=== PATIENT | male | born 1960 | race African-American/Black ===

== ENCOUNTER 2019-11-07 19:13 | Emergency (ER) | payer MEDICAID, SELFPAY ==
[2019-11-07 19:14] VITALS: BP 108/67; PULSE 99; RESP 15; TEMP 37; O2SAT 100; BMI 34.2
--- NOTE | 2019-11-07 19:15 | ED.RN ---
NO OLD EKGS IN MUSE
[2019-11-07 19:23] VITALS: BP 117/79; PULSE 93; RESP 14; O2SAT 97
--- NOTE | 2019-11-07 19:28 | CT_ITS ---
STUDY: CT BRAIN WITHOUT CONTRAST REASON FOR EXAM: Male, 58 years old. Dizziness weakness RADIATION DOSAGE (If Supplied By Facility): CTDIvol = ( 44.99 ) mGy, DLP = ( 779.24 ) mGycm TECHNIQUE: Transaxial CT imaging of the brain was performed without administration of intravenous contrast material. Individualized dose optimization techniques were used for this CT. COMPARISON: No relevant priors. FINDINGS: Brain parenchyma is without focal lesions, mass effect, acute intracranial hemorrhage, extra parenchymal fluid collections, hydrocephalus or herniation. The skull is intact. CT/Brain/Head without Contrast IMPRESSION: 1. Normal CT brain. Electronically Signed: Sapphire Calabrese, at 20:12 EST Tel , Service support ,
--- NOTE | 2019-11-07 19:28 | RAD_ITS ---
STUDY: X-RAY CHEST REASON FOR EXAM: Male, 58 years old. Shortness of breath dizziness TECHNIQUE: Frontal view of the chest was performed COMPARISON: None. FINDINGS: Lungs are clear. There is no pneumothorax, pulmonary edema, pleural effusions or cardiomegaly. Osseous structures are intact. There is no gas under the diaphragms. [ ] RAD/Chest 1 View (Portable) IMPRESSION: 1. No acute cardiorespiratory disease. [ ] Electronically Signed: Sapphire Calabrese, at 20:26 EST Tel , Service support ,
--- NOTE | 2019-11-07 19:29 | EKG12_ITS ---
Test Reason : CP Blood Pressure : / mmHG Vent. Rate : 089 BPM Atrial Rate : 089 BPM P-R Int : 152 ms QRS Dur : 076 ms QT Int : 364 ms P-R-T Axes : 049 058 045 degrees QTc Int : 442 ms Normal sinus rhythm Nonspecific T wave abnormality Abnormal ECG Confirmed by RUBEN MCGILL, BERNA ([id number]), supervising editor trailer COLBY UGARTE ([id number]) on 11/08/2019 11:26:37 AM Referred By: ANA/RENATA Confirmed By:BERNA MIRANDA MD
--- NOTE | 2019-11-07 19:31 | ED.VIS.GEN ---
History of Present Illness Chief Complaint: Chest Pain Detail of Chief Complaint: Lightheaded and dizzy, chest pain with deep breath, short of breath Informant: Patient Onset: Days Context: Gradual Onset Timing: Waxes and wanes Current Severity: Mild Maximum Severity: Moderate Narrative: Patient presents secondary to 2-day history of ringing in his ears that he describes as crickets as well as feeling lightheaded and dizzy. He states he does feel like the room is spinning somewhat. Symptoms are worsened when he is standing and better when sitting at rest. He states his been moving very slowly so he does not fall. Today he reports chest pain with deep breath and feeling somewhat short of breath. - Past Medical History (1) Hypertension Status: Chronic (2) Diverticulitis Status: Resolved Past Medical History - Allergies and Home Meds Allergies/Adverse Reactions: Allergies Penicillins Allergy (Verified 11/07/19 19:17) Swelling Primary Care Physician: Dalila Farfan DO [NON-STAFF] - As Needed Surgical History: - - Partial colectomy Lives: Spouse/ Significant Other Smoking Status: Current every day smoker Review of Systems General: Denies: Chills, Fever Eyes: Denies: Visual changes - bilaterally ENT: Reports: - - Ringing in ears. Denies: Bilateral ear pain Cardiovascular: Reports: Chest pain Respiratory: Reports: Dyspnea. Denies: Cough, Sputum Gastrointestinal: Denies: Abdominal pain, Nausea, Vomiting, Diarrhea Musculoskeletal: Denies: Neck pain, Back pain, Extremity Pain Skin: Denies: Rash Neurological: Denies: Headache Hematologic: Denies: Easy bruising Allergy: Denies: Uticaria Physical Exam Vital Signs/Narrative: Vital Signs Temp Pulse Resp BP Pulse Ox 11/07/19 19:23 93 14 117/79 97 11/07/19 19:14 98.6 F 99 15 108/67 100 Inital Vital Signs reviewed: Yes General: Well nourished, Well developed Head: Normocephalic ENT: Moist mucous membranes Neck: Supple Cardiovascular: Regular rate, Regular rhythm Respiratory: No distress, CTA bilaterally Abdomen: Soft, Nontender, Hypoactive bowel sounds Extremities: Nontender Skin: Normal color, No rash Neurological: Alert, Oriented x3, Normal Strength, Normal Sensation, - - NIH equals 0 Psychological: Normal affect Diagnostic/Tx/Re-eval Impressions Brain CT 11/07/19 19:28 IMPRESSION: 1. Normal CT brain. Electronically Signed: Sapphire Calabrese, at 20:12 EST Tel , Service support , Chest X-Ray 11/07/19 19:28 IMPRESSION: 1. No acute cardiorespiratory disease. [ ] Electronically Signed: Sapphire Calabrese, at 20:26 EST Tel , Service support , 11/07/19 19:28 Brain/Head without Contrast [CT] Stat Chest 1 View (Portable) [RAD] Stat Laboratory Results 11/07/19 11/07/19 11/07/19 19:27 19:27 19:27 WBC 6.6 RBC 5.65 Hgb 16.7 H Hct 49.3 MCV 87.3 MCH 29.6 MCHC 33.9 RDW Std Deviation 41.5 RDW Coeff of Rocael 13.1 Plt Count 238 MPV 9.3 Immature Gran % (Auto) 0.300 Neut % (Auto) 45.1 L Lymph % (Auto) 41.5 H [place] % (Auto) 9.3 Eos % (Auto) 3.2 Baso % (Auto) 0.6 Absolute Neuts (auto) 3.0 Absolute Lymphs (auto) 2.72 Nucleated RBC % 0 D-Dimer Quant (PE/DVT) 0.28 Sodium 142 Potassium 3.7 Chloride 108 H Carbon Dioxide 29.0 Anion Gap 5 BUN 22 H Creatinine 1.45 H Estim Creat Clear Calc 58.42 Est GFR (MDRD) Af Amer 64 Est GFR (MDRD) Non-Af 53 L BUN/Creatinine Ratio 15.2 Glucose 66 L Calcium 9.0 Troponin I < 0.015 - EKG Initial EKG Interpretation: Sinus Rhythm - Sinus at 89 with T wave flattening. No prior study available for comparison. - Medical Decision Making Patient was given 0.5 mg of Ativan along with IV fluids. On repeat evaluation he reports feeling much improved. He is able to ambulate up and down the halls without dizziness. I did advise patient that his symptoms are consistent with vertigo but may have been worsened with his mild dehydration. He will increase fluids. We discussed the possibility of M?ni?re's disease as he does have the ringing in his ears along with vertigo. He is encouraged to follow-up with his primary care physician for further evaluation. ED Disposition - Plan for ED Patient: Disposition: Home or Assisted Living Diagnosis: Vertigo, Atypical chest pain Instructions: CHEST PAIN, NonCardiac, VERTIGO, Unspecified Referrals: Fast,Dalila, DO [NON-STAFF] - As Needed
[2019-11-07] MEDS: 0.9% Normal Saline 1,000 ML 1000 ML IV (19:37)
[2019-11-07] MEDS: LORazepam 2 MG/ML Syringe 0.5 MG IV (19:37)
[2019-11-07 19:49] LABS: Absolute Lymphocyte Count 2.72 X10^3/uL (0.83-4.51); Basophil# 0.04 X10^3/uL; Basophil% 0.6 % (0-1); Eosinophil# 0.21 X10^3/uL; Eosinophils% 3.2 % (0-5); Hematocrit 49.3 % (40-54); Hemoglobin 16.7 g/dL (13.0-16.5); Lymphocyte # 2.72 X10^3/ul (4.0); Lymphocyte % 41.5 % (19-41); Mean Corp Hgb Conc 33.9 g/dL (32-36); Mean Corpuscular Hgb 29.6 pg (27.0-32.0); Mean Corpuscular Volume 87.3 fL (80-94); Mean Platelet Vol. 9.3 fl (6.2-12.0); Monocyte# 0.61 X10^3/uL; Monocyte% 9.3 % (0-10); NRBC Flagged by Analyzer 0 % (0-5); Neutrophil # 2.96 X10^3/uL (2.7-7.7); Neutrophil % 45.1 % (47-70); Platelet Count 238 K/mm3 (150-450); RBC Distribution Width CV 13.1 % (11.6-14.6); RBC Distribution Width SD 41.5 fl (35.1-43.9); Red Blood Count 5.65 M/mm3 (4.6-6.2); White Blood Count 6.6 K/mm3 (4.4-11.0)
[2019-11-07 19:55] LABS: D-Dimer Quantitative (DVT/PE) 0.28 FEU/ug/m (0.27-0.49)
[2019-11-07 20:06] LABS: Anion Gap 5 (5-15); BUN 22 mg/dL (7-18); BUN/Creat Ratio 15.2 RATIO (10-20); Chloride 108 mmol/L (98-107); Creatinine, Serum 1.45 mg/dL (0.70-1.30); EST Glomerular Filtration Rate 53 mL/min (>60); Est Glom Filt Rate - Afr Amer 64 mL/min (>60); Estimated Creatinine Clearance 58.42 ml/min; Glucose 66 mg/dL (74-106); Potassium 3.7 mmol/L (3.5-5.1); Sodium Level 142 mmol/L (136-145)
[2019-11-07 20:32] VITALS: BP 129/74; PULSE 85; RESP 16; O2SAT 97
[2019-11-07] MEDS: 0.9% Normal Saline 1,000 ML 150 ML IV (20:57)
[2019-11-07 21:00] VITALS: BP 118/86; PULSE 82; RESP 17; O2SAT 98
[2019-11-07 22:13] VITALS: BP 133/78; PULSE 80; RESP 16; O2SAT 100
== END 2019-11-07 22:15 | disposition home or self-care (01) ==
PROVIDERS: Emergency Provider Emergency Medicine
DX: R07.89 Other chest pain (principal); R07.1 Chest pain on breathing; R42 Dizziness and giddiness; R06.02 Shortness of breath; I10 Essential (primary) hypertension; F17.200 Nicotine dependence, unspecified, uncomplicated; Z79.899 Other long term (current) drug therapy; Z88.0 Allergy status to penicillin; Z90.49 Acquired absence of other specified parts of digestive tract
CPT/HCPCS: 70450; 71045; 80048; 84484; 85025; 85379; 93005; 96361; 96374; 99284; J7030; A4216

== ENCOUNTER 2020-02-29 20:18 | Emergency (ER) | payer MEDICAID, SELFPAY ==
[2020-02-29 20:19] VITALS: BP 146/71; PULSE 90; RESP 20; TEMP 36.9; O2SAT 100; BMI 33.5
--- NOTE | 2020-02-29 20:35 | ED.VIS.GEN ---
History of Present Illness Chief Complaint: Back Informant: Patient Onset: Days Context: Gradual Onset Timing: Waxes and wanes Current Severity: Moderate Maximum Severity: Severe Narrative: Patient presents with left lower back pain for the past 3 days. He states after getting out of the shower he had leaned over to clip his toenails. When he stood back up he developed pain in the left lower back near the SI joint area. Patient denies any direct trauma to his back. Pain does not radiate down his leg. He has had difficulty finding comfortable positions to sit in. When asked what medication he was taking for pain he told me Aleve and ibuprofen. I did see that the patient had been at [facility] yesterday and was given prescriptions for Percocet and Flexeril. When asked when patient had taken the last dose of this he states at 1:00 this afternoon. - Past Medical History (1) Hypertension Status: Chronic (2) Diverticulitis Status: Resolved Past Medical History - Allergies and Home Meds Allergies/Adverse Reactions: Allergies Penicillins Allergy (Verified 02/29/20 20:20) Angioedema Primary Care Physician: Shereen Jacob MD [Primary Care Provider] - Prior records reviewed: Yes Surgical History: - - Partial colectomy Smoking Status: Current every day smoker Review of Systems General: Reports: Chills Eyes: Reports: Visual changes - bilaterally ENT: Reports: Bilateral ear pain Cardiovascular: Reports: Chest pain Respiratory: Reports: Dyspnea, Cough Gastrointestinal: Reports: Abdominal pain, Nausea, Vomiting, Diarrhea Musculoskeletal: Reports: Back pain. Denies: Extremity Pain Skin: Denies: Rash Neurological: Denies: Headache Hematologic: Denies: Easy bruising Allergy: Denies: Uticaria Physical Exam Vital Signs/Narrative: Vital Signs Temp Pulse Resp BP Pulse Ox 02/29/20 20:19 98.4 F 90 20 H 146/71 H 100 Inital Vital Signs reviewed: Yes General: Well nourished, Well developed Head: Normocephalic ENT: Moist mucous membranes Neck: Supple Cardiovascular: Regular rate, Regular rhythm Respiratory: No distress, CTA bilaterally Abdomen: Soft, Nontender Back: - - Reproducible pain the left low lumbar paraspinal muscles and over the sciatic notch. Extremities: Nontender Skin: Normal color, No rash Neurological: Alert, Oriented x3, - - And at bedside. He is able to raise up on tiptoes and heels without difficulty. He is strong distal pulses. Normal sensation. Diagnostic/Tx/Re-eval - Medical Decision Making We will add steroids to the patient's current pain medications. He will be given first dose here and prescription will be sent to the pharmacy for him. Because he was already prescribed Flexeril and Percocet he would not be given additional pain medication or muscle relaxers. ED Disposition - Plan for ED Patient: Disposition: Home or Assisted Living Diagnosis: Sciatica Instructions: ED LUMBAR RADICULOPATHY Prescriptions: Prednisone [Deltasone] 60 mg PO DAILY #15 tab Transmission Status: Pending to [facility] #30 Referrals: Shereen Jacob MD [Primary Care Provider] - 1 Week
[2020-02-29] MEDS: cycloBENZAPRine HCl 10 MG Tablet PO (20:47)
[2020-02-29] MEDS: oxyCODONE 5 MG Tablet PO (20:47)
[2020-02-29] MEDS: predniSONE 20 MG Tablet 60 MG PO (20:47)
[2020-02-29 20:49] VITALS: BP 152/69; PULSE 82; RESP 16; O2SAT 99
== END 2020-02-29 20:49 | disposition home or self-care (01) ==
PROVIDERS: Emergency Provider Emergency Medicine; PCP Internal Medicine
DX: M54.40 Lumbago with sciatica, unspecified side (principal); I10 Essential (primary) hypertension; H92.03 Otalgia, bilateral; R07.9 Chest pain, unspecified; R06.00 Dyspnea, unspecified; R05 Cough; R11.2 Nausea with vomiting, unspecified; R10.9 Unspecified abdominal pain; R19.7 Diarrhea, unspecified; Z79.899 Other long term (current) drug therapy; Z88.0 Allergy status to penicillin; F17.200 Nicotine dependence, unspecified, uncomplicated; Z87.19 Personal history of other diseases of the digestive system; Z90.49 Acquired absence of other specified parts of digestive tract
CPT/HCPCS: 99283

== ENCOUNTER 2021-01-14 18:57 | Emergency (ER) | payer MEDICAID, SELFPAY ==
[2021-01-14 18:59] VITALS: BP 131/75; PULSE 79; RESP 20; TEMP 36.5; O2SAT 100; BMI 36.2
--- NOTE | 2021-01-14 19:17 | EKG12_ITS ---
Test Reason : CHEST PRESSURE Blood Pressure : / mmHG Vent. Rate : 062 BPM Atrial Rate : 062 BPM P-R Int : 164 ms QRS Dur : 084 ms QT Int : 408 ms P-R-T Axes : 058 032 058 degrees QTc Int : 414 ms Sinus rhythm with occasional Premature ventricular complexes Otherwise normal ECG Confirmed by RUBEN MCGILL, BERNA ([id number]), film editor supervisor BRY CLARKE ([id number]) on 01/16/2021 11:37:55 AM Referred By: DAPHNE Confirmed By:BERNA MIRANDA MD
--- NOTE | 2021-01-14 19:23 | ED.DCSUM_ITS ---
History of Present Illness Chief Complaint: Abd Pain Informant: Patient, Significant Other Onset: Days - Onset of epigastric pain 4 days ago Context: Sudden Onset Timing: Continuous Quality: Pain?burning Location: Epigastrium Current Severity: Mild Maximum Severity: Moderate Worsened by: Eating Relieved by: Nothing Associated Symptoms: Nausea and vomiting with vasovagal response prior to arrival Narrative: Patient is a pleasant 60-year-old male with history of hypertension who presents with epigastric burning sensation for the past 4 days. The pain is worse with eating. He denies intolerance to greasy or fried foods. There is no family history of cholelithiasis or cholecystitis. He has taken [id number] preps with no relief. He states he was constipated and took something. He has had results. He denies fever, chills night sweats. Denies headache, visual, ocular auditory symptoms. He denies rhinorrhea, congestion or postnasal drainage. Denies sore throat. He denies discomfort in his chest. He denies exertional discomfort or positional discomfort. He denies cough, shortness of breath or dyspnea on exertion. He denies orthopnea or PND. He denies black or maroon-colored stool. He denies urologic symptoms. He denies rash. Denies myalgias or arthralgias. He has had no ill contacts. He denies history of GERD, hiatal hernia, gastritis or peptic ulcer disease. Prior similar symptoms: No Recent Illness/Hospitalization: No - Past Medical History (1) Hypertension Status: Chronic (2) Diverticulitis Status: Resolved Past Medical History - Allergies and Home Meds Allergies/Adverse Reactions: Allergies Penicillins Allergy (Verified 02/29/20 20:20) Angioedema Primary Care Physician: Shereen Jacob MD [Primary Care Provider] - Prior records reviewed: Yes Surgical History: noncontributory, - - Partial colectomy Lives: Spouse/ Significant Other Smoking Status: Current every day smoker Alcohol: None Drugs: None Review of Systems General: Denies: Chills, Fever, Subjective, Sweats Eyes: Denies: Visual changes - bilaterally, Blurred Vision - bilaterally ENT: Denies: Bilateral ear pain, Rhinorrhea, Sore throat Cardiovascular: Denies: Chest pain, Palpitations Respiratory: Denies: Dyspnea, Cough, Sputum, Dyspnea on exertion, Orthopnea, Paroxysmal nocturnal dyspnea, -, - Gastrointestinal: Reports: Abdominal pain, Nausea, Vomiting. Denies: Diarrhea, Constipation, Melena, Hematochezia Genitourinary: Denies: Dysuria, Hematuria, Frequency Musculoskeletal: Denies: Myalgias, Arthralgias, Neck pain, Back pain, Swelling, Extremity Pain, -, - Skin: Denies: Rash, Wounds Neurological: Denies: Headache, Weakness, Numbness Endocrine: Denies: Polyuria, Polydipsia Hematologic: Denies: Easy bruising, Easy bleeding Physical Exam Vital Signs/Narrative: Vital Signs Temp Pulse Resp BP Pulse Ox 01/14/21 18:59 97.7 F L 79 20 H 131/75 H 100 Inital Vital Signs reviewed: Yes General: Well nourished, Well developed, No Acute Distress Head: Normocephalic, Atraumatic Eyes: Perrl, EOMI ENT: Moist mucous membranes, No rhinorrhea Neck: Supple, Nontender Cardiovascular: Regular rate, Regular rhythm, No murmurs Respiratory: No distress, CTA bilaterally, Chest nontender Abdomen: Soft, Nondistended, Normal bowel sounds, Tender - Tenderness in the epigastrium.. Negative for: Mendez's sign Back: Nontender, Normal Inspection. Negative for: CVA tenderness Extremities: Nontender, No edema Skin: Normal color, No rash Neurological: Alert, Oriented x3, Cranial nerves II-XII grossly intact, Normal Strength, Normal Sensation Psychological: Normal affect, Normal Mood Diagnostic/Tx/Re-eval Impressions Abdomen Ultrasound 01/14/21 21:04 IMPRESSION: Contracted gallbladder. Gallbladder wall is slightly thickened likely due to this contraction rather than inflammation. at 2300 Reported and signed by: Russell Garcia MD Electronically Signed: Russell Garcia MD at 22:59 EST Tel , Service support , 01/14/21 21:04 Abdomen Limited [US] Stat Laboratory Results 01/14/21 19:40 Sodium 139 Potassium 3.6 Chloride 104 Carbon Dioxide 30.0 Anion Gap 5 BUN 17 Creatinine 1.28 Estim Creat Clear Calc 64.55 Est GFR (MDRD) Af Amer 73 Est GFR (MDRD) Non-Af 61 BUN/Creatinine Ratio 13.3 Glucose 94 Calcium 8.5 Total Bilirubin 0.40 AST 45 H ALT 71 H Alkaline Phosphatase 71 Troponin I < 0.015 Total Protein 7.4 Albumin 3.6 Globulin 3.8 Albumin/Globulin Ratio 0.9 Lipase 487 H CBC and differential unremarkable. Patient reports relief of his epigastric pain with GI cocktail. Will discharge with prescription for omeprazole. He has been instructed follow-up with his physician regarding the elevated transaminases and lipase. - EKG Initial EKG Interpretation: Sinus Rhythm - Sinus rhythm with a ventricular rate of 62. There is a premature ventricular beat noted. NM interval 74 ms. QRS duration 84 ms. QT duration 408 ms. [place] is normal. Other than the premature ventricular beat the EKG is normal. - Medical Decision Making Differential diagnosis includes esophagitis, GERD, gastritis, peptic ulcer disease. Because he is 60 years of age with history hypertension EKG and troponin was obtained and that this is atypical presentation for cardiac ischemia. CMP was obtained to assess liver enzymes and lipase to rule out biliary disease. GI cocktail was ordered. ED Disposition - Plan for ED Patient: Disposition: Home or Assisted Living Diagnosis: Acute epigastric pain, Elevated liver transaminase level Instructions: ED GERD (Adult) Prescriptions: Omeprazole 40 mg PO DAILY #30 capsule.dr Transmission Status: Pending to [facility] #30 Referrals: Shereen Jacob MD [Primary Care Provider] - 3-5 Days Additional Instructions: 1. Your liver enzymes are elevated. The cause of this is unknown. You should call your doctor's office in the morning to be seen later this week. You were prescribed medication for the pain in your upper abdomen. The medication was sent to your preferred pharmacy/pharmacy of choice
[2021-01-14] MEDS: Mag Hydrox/Al Hydrox/Simeth 30 ML UDC PO (19:33)
[2021-01-14 20:08] LABS: ALB/GLOB Ratio 0.9 RATIO (0.9-2.4); AST(SGOT) 45 U/L (15-37); Alanine Aminotransfer ALT/SGPT 71 U/L (16-61); Albumin, Serum 3.6 g/dL (3.2-5.0); Alkaline Phosphatase 71 U/L (45-117); Anion Gap 5 (5-15); BUN 17 mg/dL (7-18); BUN/Creat Ratio 13.3 RATIO (10-20); Calcium,Total 8.5 mg/dL (8.5-10.1); Chloride 104 mmol/L (98-107); Creatinine, Serum 1.28 mg/dL (0.70-1.30); EST Glomerular Filtration Rate 61 mL/min (>60); Est Glom Filt Rate - Afr Amer 73 mL/min (>60); Estimated Creatinine Clearance 64.55 ml/min; Globulin 3.8 g/dL (2.2-4.2); Glucose 94 mg/dL (74-106); Lipase 487 U/L (73-393); Potassium 3.6 mmol/L (3.5-5.1); Protein, Total 7.4 g/dL (6.4-8.2); Sodium Level 139 mmol/L (136-145)
[2021-01-14 21:00] VITALS: BP 115/75; PULSE 59; RESP 12; O2SAT 99
--- NOTE | 2021-01-14 21:04 | US_ITS ---
HISTORY: EPIGASTRIC PAIN X 4 DAYS TECHNIQUE: Beatty scale and color doppler imaging was performed of the pancreas, liver, and gallbladder. COMPARISON: None FINDINGS: # of images incl. paperwork: 72 The liver is fattily infiltrated. The gallbladder is contracted No gallstones, or biliary dilatation. Gallbladder wall measures 4 mm. Common bile duct measures 2 mm. No tenderness upon insonation the gallbladder. Visualized pancreas is normal in appearance. Right kidney is normal in size and appearance. Visualized abdominal aorta has normal caliber. IVC is patent. Hepatopedal flow is present within the central portal vein. US/Abdomen Limited IMPRESSION: Contracted gallbladder. Gallbladder wall is slightly thickened likely due to this contraction rather than inflammation. at 2300 Reported and signed by: Russell Garcia MD Electronically Signed: Russell Garcia MD at 22:59 EST Tel , Service support ,
[2021-01-14 23:46] LABS: Absolute Lymphocyte Count 2.26 X10^3/uL (0.83-4.51); Absolute Neutrophil Count 2.6 X10^3/uL (2.0-7.7); Basophil# 0.04 X10^3/uL; Basophil% 0.7 % (0-1); Eosinophil# 0.29 X10^3/uL; Hematocrit 47.1 % (40-54); Lymphocyte # 2.26 X10^3/ul (4.0); Lymphocyte % 39.3 % (19-41); Mean Corp Hgb Conc 31.8 g/dL (32-36); Mean Corpuscular Hgb 28.6 pg (27.0-32.0); Mean Corpuscular Volume 89.9 fL (80-94); Mean Platelet Vol. 9.5 fl (6.2-12.0); Monocyte# 0.46 X10^3/uL; NRBC Flagged by Analyzer 0 % (0-5); Neutrophil # 2.64 X10^3/uL (2.7-7.7); Platelet Count 195 K/mm3 (150-450); RBC Distribution Width CV 12.8 % (11.6-14.6); RBC Distribution Width SD 42.5 fl (35.1-43.9); Red Blood Count 5.24 M/mm3 (4.6-6.2); White Blood Count 5.8 K/mm3 (4.4-11.0)
[2021-01-14 23:57] VITALS: BP 112/92; PULSE 78; RESP 18; O2SAT 100; O2SAT 98
== END 2021-01-15 00:14 | disposition home or self-care (01) ==
PROVIDERS: Emergency Provider Emergency Medicine; PCP Internal Medicine
DX: R10.13 Epigastric pain (principal); R74.02 Elevation of levels of lactic acid dehydrogenase [LDH]; R11.2 Nausea with vomiting, unspecified; I49.3 Ventricular premature depolarization; I10 Essential (primary) hypertension; F17.200 Nicotine dependence, unspecified, uncomplicated; Z79.899 Other long term (current) drug therapy
CPT/HCPCS: 76705; 80053; 83690; 84484; 85025; 93005; 99285

== ENCOUNTER 2022-03-24 15:49 | Emergency (ER) | payer MEDICAID, SELFPAY ==
[2022-03-24 15:50] VITALS: BP 140/79; PULSE 95; RESP 17; TEMP 37.4; O2SAT 92; BMI 39.8
--- NOTE | 2022-03-24 16:38 | EDS_ITS ---
HPI History of Present Illness Chief Complaint: Cellulitis Detail of Chief Complaint: Finger Informant: patient Onset/Context/Timing Onset: Days Context: Gradual Onset Timing: Continuous Current Severity: Mild Maximum Severity: Mild Narrative Narrative: 61-year-old male history of hypertension. States he reached under his car seat yesterday and something punctured his right long finger on the palmar aspect at the PIP. It is now red and swollen has been the last couple days. Denies any other trauma. He is right-hand dominant. He is not diabetic. Prior similar symptoms: No Recent Illness/Hospitalization: No PFSH PFSH Home Medications hydrochlorothiazide 25 mg PO DAILY 11/07/19 [History Last Taken Unknown] lisinopril 10 mg PO DAILY 11/07/19 [History Last Taken Unknown] omeprazole 40 mg PO DAILY #30 capsule. 01/14/21 [Rx Last Taken Unknown] Allergy/AdvReac Type Severity Reaction Status Date / Time Penicillins Allergy Angioedema Verified 03/24/22 15:49 Social History Smoking Status: Current every day smoker tobacco type: cigarettes ROS ROS ED ROS Narrative Right long finger red and swollen. Review of Systems ROS Unobtainable: Denies due to encephalopathy or due to endotracheal tube Constitutional Constitutional ED: Denies chills or fever(s) Eyes Eyes: Denies blurry vision, change in vision or diplopia ENT ENT ED: Denies ear pain Cardiovascular Cardiovascular: Denies chest pain Respiratory/Chest Respiratory/Chest: Denies cough or dyspnea Gastrointestinal Gastrointestinal: Denies abdominal pain, diarrhea, nausea or vomiting Genitourinary Genitourinary ED: Denies dysuria or hematuria Musculoskeletal Musculoskeletal: Denies arthralgias or myalgias Integumentary Denies abscess or rash Neurologic Neurologic: Denies headache(s) Psychiatric Psychiatric: Denies depression Endocrine Endocrinology: Denies polyuria Allergic/Immunologic Allergic/Immunologic ED: Denies urticaria EXAM Physical Exam Narrative Exam Narrative: 59-year-old male no acute distress vital signs stable afebrile. HEENT exam unremarkable. Lungs are clear. Heart regular rate and rhythm. Right long finger and palmar aspect of the DIP there is a pustule. Finger is red and swollen. He has decreased flexion due to swelling. No flexor tenosynovitis at this time. He has 180 degrees of extension. Normal touch sensation. Normal cap refill. The palm is uninvolved there is no pagetic streaking in his forearm and no axillary lymphadenopathy. It is obviously infected the long finger. Const Vital Signs: 03/24/22 15:50 Temperature 99.3 F H Temperature Source Temporal Pulse Rate 95 Respiratory Rate 17 Blood Pressure 140/79 H Blood Pressure Mean 99 Pulse Ox 92 Oxygen Delivery Method Room Air Positive well nourished, well developed and obese; Negative for cachectic, contractures or unkempt General Appearance ED: well developed and NAD; Negative for unkempt, cachectic, contractures, cyanotic, diaphoretic or pallor Nutritional Appearance: obese; Negative for cachectic HEENT Reports moist mucous membranes Negative for trauma or tenderness Eyes PERRL and EOMs intact bilaterally Neck no lymphadenopathy, supple and no JVD General: Negative for tenderness Chest Wall inspection of chest normal and palpation of chest normal Resp normal respiratory effort and clear to auscultation bilaterally Effort and Inspection: Negative for pain with movement Auscultation: Negative for rales, rhonchi or wheezes Cardio regular rate, regular rhythm, S1 normal heart sound, S2 normal heart sound and no murmurs GI normal to inspection, nondistended, normoactive bowel sounds, non-tender, non- distended and no masses Inspection: Negative for abdominal distention Auscultation: normoactive bowel sounds Palpation: soft; Negative for tender, guarding or rebound tenderness present Back/Spine no CVA tenderness Extremity Negative for normal to inspection Extremity Narrative: Right long finger is red, tender, swollen with decreased flexion due to swelling. There is an abscess at the DIP skin crease on the palmar aspect. General Extremety ED: Yes edema and tenderness General Extremity: edema Neuro oriented x3 Sensorium / Orientation: alert Motor Exam: strength 5/5 throughout Psych mental status grossly normal Appearance: Negative for unkempt Mood & Affect: Negative for depressed or tearful Skin No no rashes or lesions noted and No no wounds Skin Narrative: Right long finger puncture wound at the DIP with redness and abscess. General Skin Exam: Negative for jaundice or pallor MDM MDM MDM Narrative Medical decision making narrative: Patient has an infected right long finger after a puncture wound. There appears to be an abscess that will need to be drained. Also an x-ray to be obtained to rule out a foreign body and he will be started on Keflex. First dose given in ER. Procedure: I&D of a right right long finger abscess. Any other symptoms locally anesthetized with let. I made a small incision about half to 1 cm. Expressed about 1 to 2 cc of pus. Patient tolerated procedure well. There are no Knievel signs. No signs of tenosynovitis at this time. He was instructed on wound care. He will be discharged with prescription of Keflex to be given while here. Radiography Diagnostic Testing: Clinical Impression(s) from Imaging Studies Finger X-Ray 03/24/22 16:47 IMPRESSION: Negative x-rays of the visualized right fingers. Electronically Signed: Keven Robins MD at 17:21 EDT , Right long finger x-ray 2 views interpreted by myself shows soft tissue swelling. No foreign body. Also read by the radiologist and agrees. Procedures Other Procedures Procedure(s): Incision and drainage of right long finger subcu abscess. Local anesthetized with let. Made a small incision approximately 1 cm was able to drain about about 1 to 2 cc of pus. Patient tolerated well. Discharge Plan Triage Chief Complaint: Cellulitis ED Provider: Amish Loja Dx/Rx/DC Orders Prescriptions: No Action lisinopril 10 MG tablet 10 mg PO DAILY RF: 0 hydrochlorothiazide 12.5 MG capsule 25 mg PO DAILY RF: 0 omeprazole 40 MG capsule,delayed release(DR/EC) 40 mg PO DAILY Qty: 30 RF: 0 Primary Care Provider: Shereen Jacob
[2022-03-24] MEDS: Cephalexin 250 MG Capsule 500 MG PO (16:42)
--- NOTE | 2022-03-24 16:47 | RAD_ITS ---
EXAM: XR RIGHT FINGERS, 2 OR MORE VIEWS CLINICAL INDICATION: right long swelling TECHNIQUE: Frontal, lateral and oblique views of the fingers of the right hand. This report was created using [employer] report generation technology. COMPARISON: None. FINDINGS: BONES/JOINTS: Unremarkable. No acute fracture. No subluxation. Normal alignment. Preservation of the joint space. No sclerotic or destructive changes observed. SOFT TISSUES: Unremarkable. No soft tissue swelling or gas. No radiopaque foreign body. RAD/Finger(s) Min 2 Views IMPRESSION: Negative x-rays of the visualized right fingers. Electronically Signed: Keven Robins MD at 17:21 EDT ,
[2022-03-24] MEDS: Lidocaine/Epi/Tetracaine 50 ML 1 APPLIC TOPICAL (16:56)
== END 2022-03-24 17:57 | disposition home or self-care (01) ==
PROVIDERS: Emergency Provider Emergency Medicine; PCP Internal Medicine; Visit Provider Emergency Medicine
DX: L02.413 Cutaneous abscess of right upper limb (principal); S61.234A Puncture wound without foreign body of right ring finger without damage to nail, initial encounter; I10 Essential (primary) hypertension; F17.210 Nicotine dependence, cigarettes, uncomplicated; W26.8XXA Contact with other sharp object(s), not elsewhere classified, initial encounter; Z79.899 Other long term (current) drug therapy; E66.9 Obesity, unspecified; Z68.39 Body mass index [BMI] 39.0-39.9, adult
CPT/HCPCS: 10060; 73140; 99283

== ENCOUNTER → 2024-02-17 | Outpatient (CLI) | payer MEDICAID, SELFPAY ==
--- NOTE | 2024-02-17 08:14 | MRI_ITS ---
STUDY: MRI BRAIN WITH AND WITHOUT CONTRAST REASON FOR EXAM: Male, 63 years old. BILAT OPTIC ATROPHY TECHNIQUE: Standardized multiplanar fat and water weighted pulse sequences were obtained. IV 22ml clariscan was administered for the contrast portion of the examination. COMPARISON: None. FINDINGS: There is mild cerebral atrophy with widening of the extra-axial spaces and ventricular dilatation. Normal white matter tracts of the supratentorial brain. There is no evidence for recent intracranial ischemia or other cause of cytotoxic edema on diffusion weighted imaging (DWI). There are no demyelinating plagues of the supratentorial brain, brainstem or cerebellum. There are no findings suspicious for multiple sclerosis (MS). Normal T2* images of the brain without demonstrated susceptibility artifact. There is no demonstrated hemosiderin stain. Normal bilateral basal ganglia. Normal thalami. There is no extra-axial fluid accumulation. Normal flow voids within the major intracranial circulation suggesting patency by spin echo criteria. Normal venous enhancement. There is no enhancing intra-axial or extra-axial abnormality. No ring-enhancing lesions of the brain parenchyma are present. There is no abnormal thickening or enhancement meninges or dura. Normal sella turcica, pituitary gland, infundibular stalk, optic chiasm and hypothalamus. Normal tectal plate and pineal gland. Normal midbrain, sandor and medulla. Normal cerebellum. Normal basal cisterns. Normal bilateral temporal bones. Normal bilateral internal auditory canals. There is mucoperiosteal inflammatory disease of the paranasal sinuses consistent with mild chronic sinusitis. Normal calvarium and skull base. Normal visualized soft tissue structures. Normal visualized upper cervical spine. IMPRESSION: 1. Involutional changes of the brain, as described above. STUDY: MRI ORBITS WITH AND WITHOUT CONTRAST REASON FOR EXAM: Male, 63 years old. BILAT OPTIC ATROPHY TECHNIQUE: Standardized fat and water weighted pulse sequences were obtained in all 3 orthogonal planes, pre-and post contrast administration. IV 22ml clariscan was administered for the contrast portion of the examination. COMPARISON: None. FINDINGS: Normal bilateral globes. There is moderate diffuse atrophy of the left optic nerve along its full course to the insertion in the posterior aspect of the globe as well as a small amount of fluid in the optic nerve sheath consistent with optic neuritis. The right optic nerve is mildly and diffusely atrophic. There is a moderate amount of fluid in the superior aspect of the right optic nerve sheath due to optic neuritis. Normal bilateral intraconal and extraconal spaces. Normal bilateral extraocular muscles. Normal optic chiasm and post-chiasmatic tracts. Normal sella turcica, pituitary gland, infundibular stalk, and hypothalamus. Normal bilateral cavernous sinuses. Normal tectal plate and pineal gland. There is no extra-axial fluid accumulation. Normal midbrain, sandor and medulla. Normal cerebellum. Normal basal cisterns. MRI/Brain W/WO Contrast IMPRESSION: 1. 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 2. The right optic nerve is mildly and diffusely atrophic. There is a moderate amount of fluid in the superior aspect of the right optic nerve sheath due to optic neuritis. Electronically Signed: Familia Dietz MD at 13:49 EDT ,
[2024-02-17 11:12] LABS: CREATININE FINGERSTICK 1.2 mg/dL (0.70-1.30); EGFR FINGERSTICK > 60.0000 mL/min (>60)
== END | disposition home or self-care (01) ==
LOC: MRI 08:11
PROVIDERS: PCP Internal Medicine; Referring Provider Ophthalmology; Visit Provider Ophthalmology
DX: Z01.812 Encounter for preprocedural laboratory examination (principal); H47.213 Primary optic atrophy, bilateral
CPT/HCPCS: 70553; A9575